=== PATIENT | female | born 1960 | race American Indian/Alaskan Native ===

== ENCOUNTER 2016-12-12 06:29 | Emergency (ER) | payer BC, OTHER ==
[2016-12-12 07:28] LABS: Basophils % (Auto) 0.6 % (0.0-1.8); Eosinophils % (Auto) 1.7 % (0.0-4.3); Hemoglobin 12.7 gm/dl (10.1-14.3); Mean Corpuscular HGB Conc 33 % (30-34); Mean Corpuscular Hemoglobin 29 pg (28-32); Mean Corpuscular Volume 85 fl (79-97); Red Blood Count 4.45 M/mm3 (3.65-5.03); White Blood Count 8.9 K/mm3 (4.5-11.0)
[2016-12-12 07:43] LABS: Platelet Count 159 K/mm3 (140-440)
--- NOTE | 2016-12-12 07:52 | Emergency Department Report ---
ED Abdominal Pain HPI - General Chief Complaint: Abdominal Pain Stated Complaint: LT CHEST PAIN, UPPER ABD PAIN Time Seen by Provider: 12/12/16 06:57 Source: patient Mode of arrival: Ambulatory Limitations: No Limitations - History of Present Illness Initial Comments: 56-year-old female who presents to ED with abdominal mass and pain. Patient has a past that was diagnosed on her left upper sternal border/upper abdomen approximately 2 months ago. Her pain is continuing it worsens that time. She had an ultrasound as an outpatient but was not given the results. She denies fevers chills nausea vomiting. She is here with significant pain. -: Gradual Location: epigastric Radiation: none Migration to: no migration Severity: moderate Associated Symptoms: constipation. denies: nausea, vomiting, diarrhea, fever, chills - Related Data Allergies Allergy/AdvReac Type Severity Reaction Status Date / Time ampicillin sodium Allergy Anaphylaxis Verified 08/15/14 21:57 [From Unasyn] sulbactam sodium Allergy Anaphylaxis Verified 08/15/14 21:57 [From Unasyn] ED Review of Systems ROS: Stated complaint: LT CHEST PAIN, UPPER ABD PAIN Other details as noted in HPI Comment: All other systems reviewed and negative Constitutional: denies: chills, fever Respiratory: denies: cough, shortness of breath, wheezing Cardiovascular: denies: chest pain, palpitations Endocrine: no symptoms reported Gastrointestinal: abdominal pain. denies: nausea, diarrhea Genitourinary: denies: urgency, dysuria, discharge Musculoskeletal: denies: back pain, joint swelling, arthralgia Skin: denies: rash, lesions Neurological: denies: headache, weakness, paresthesias Psychiatric: denies: anxiety, depression Hematological/Lymphatic: denies: easy bleeding, easy bruising ED Past Medical Hx - Past Medical History Previous Medical History?: Yes Hx Hypertension: Yes Hx Asthma: Yes Additional medical history: high cholesterol - Surgical History Past Surgical History?: Yes Additional Surgical History: colon resection. back OR x 3. hyst. L lumpectomy CA. c/s x 1 - Social History Smoking Status: Light Tobacco Smoker Substance Use Type: None ED Physical Exam - General Limitations: No Limitations General appearance: alert, in no apparent distress - Head Head exam: Present: atraumatic, normocephalic - Eye Eye exam: Present: normal appearance. Absent: scleral icterus, conjunctival injection - ENT ENT exam: Present: mucous membranes moist - Neck Neck exam: Present: normal inspection - Respiratory Respiratory exam: Present: normal lung sounds bilaterally. Absent: respiratory distress, wheezes, rales - Cardiovascular Cardiovascular Exam: Present: regular rate, normal rhythm, normal heart sounds. Absent: systolic murmur, diastolic murmur, rubs, gallop - GI/Abdominal GI/Abdominal exam: Present: soft, tenderness, normal bowel sounds, mass ( palpable mass in the epigastrium along the left costal margin) - Extremities Exam Extremities exam: Present: normal inspection - Back Exam Back exam: Present: normal inspection - Neurological Exam Neurological exam: Present: alert, oriented X3 - Psychiatric Psychiatric exam: Present: normal affect, normal mood - Skin Skin exam: Present: warm, dry, intact, normal color. Absent: rash ED Course Vital Signs 12/12/16 12/12/16 06:33 06:37 Temperature 98.7 F Respiratory 16 Rate Blood Pressure 144/99 ED Medical Decision Making - Lab Data Result diagrams: 12/12/16 06:53 12/12/16 08:34 Laboratory Results - last 24 hr 12/12/16 12/12/16 12/12/16 06:53 07:18 08:34 WBC 8.9 RBC 4.45 Hgb 12.7 Hct 38.0 MCV 85 MCH 29 MCHC 33 RDW 14.0 Plt Count 159 Lymph % (Auto) 32.6 [place] % (Auto) 6.6 Eos % (Auto) 1.7 Baso % (Auto) 0.6 Lymph # 2.9 [place] # 0.6 Eos # 0.1 Baso # 0.1 Seg Neutrophils % 58.5 Seg Neutrophils # 5.2 PT 13.5 INR 0.98 APTT 32.6 Sodium 143 Potassium 4.5 Chloride 103.6 Carbon Dioxide 26 Anion Gap 18 BUN 10 Creatinine 0.7 Estimated GFR > 60 BUN/Creatinine Ratio 14 Glucose 87 Calcium 9.6 Total Bilirubin 0.30 AST 18 ALT 15 Alkaline Phosphatase 96 Troponin T < 0.010 Total Protein 7.2 Albumin 4.2 Albumin/Globulin Ratio 1.4 Lipase 34 - Medical Decision Making 56-year-old female here with palpable abdominal mass with worsening pain. Plan a CT chest abdomen pelvis check labs and will reassess patient. Labs unremarkable, CT scan unremarkable, plan to discharge home. Portions of this chart were dictated with dictation software. There may be dictation errors contained within this note. Critical care attestation.: If time is entered above; I have spent that time in minutes in the direct care of this critically ill patient, excluding procedure time. ED Disposition Clinical Impression: Abdominal pain Disposition: DC-01 TO HOME OR SELFCARE Is pt being admited?: No Condition: Stable Instructions: Abdominal Pain (ED) Referrals: PRANAY MOSES MD [Primary Care Provider] - 3-5 Days
[2016-12-12 08:09] LABS: INR 0.98 (0.87-1.13)
[2016-12-12 08:10] LABS: Partial Thromboplastin Time 32.6 Sec. (24.2-36.6)
[2016-12-12 08:59] LABS: Alanine Aminotransferase 15 units/L (7-56); Albumin 4.2 g/dL (3.9-5); Albumin/Globulin Ratio 1.4 %; Alkaline Phosphatase 96 units/L (35-129); Anion Gap 18 mmol/L; BUN/Creatinine Ratio 14; Blood Urea Nitrogen 10 mg/dL (7-17); Calcium 9.6 mg/dL (8.4-10.2); Carbon Dioxide 26 mmol/L (22-30); Chloride 103.6 mmol/L (98-107); Glucose 87 mg/dL (65-100); Lipase 34 units/L (13-60); Potassium 4.5 mmol/L (3.6-5.0); Sodium 143 mmol/L (137-145); Total Protein 7.2 g/dL (6.3-8.2)
[2016-12-12] MEDS ORDERED: NACL ONE (09:21)
--- NOTE | 2016-12-12 10:11 | Cat Scan Report ---
CT scan of abdomen and pelvis with IV contrast: History: Abdominal pain, palpable mass. Findings: Small hiatal hernia. 2 subcentimeter hypodensities right lobe of liver probably cysts. Normal gallbladder pancreas and spleen. Normal adrenals. Normal kidneys and bladder. No free intraperitoneal fluid. No concerning adenopathy. Normal aorta. Gaseous colon is largely stool in colon. No bowel distention or obstruction. No evidence of appendicitis or diverticulitis. Impression: Hypodensities liver probably cysts. Gaseous colon is largely stool in colon. Small hiatal hernia.
--- NOTE | 2016-12-12 10:13 | Cat Scan Report ---
CT scan of chest with IV contrast: History: Abdominal pain, palpable mass upper abdomen. Findings: No endobronchial or mediastinal mass. No mediastinal, hilar or axillary adenopathy. No pleural pericardial effusion. Normal lung parenchyma. No discrete nodularity consolidation or mass. Impression: Essentially negative CT scan of chest.
[2016-12-12] MEDS ORDERED: NACL 0.9% 1000 ML 1,000 ML IV ONE (10:16)
[2016-12-12 11:33] VITALS: BP 136/78
== END 2016-12-12 11:32 | disposition home or self-care (01) ==
LOC: ED 06:29
DX: R10.9 Unspecified abdominal pain (principal); I10 Essential (primary) hypertension; J45.909 Unspecified asthma, uncomplicated; F17.200 Nicotine dependence, unspecified, uncomplicated
CPT/HCPCS: 36415; 71260; 74177; 80053; 83690; 84484; 85025; 85610; 85730; 93005; 93010; 96360; 99284; J7030; Q9967

== ENCOUNTER 2016-12-27 05:28 | Emergency (ER) | payer BC ==
[2016-12-27] MEDS ORDERED: TORADOL ONE (05:54)
[2016-12-27] MEDS ORDERED: TORADOL IV ONE (06:09)
[2016-12-27] MEDS ORDERED: ZOFRAN IV ONE ×2 (06:24→10:06)
[2016-12-27] MEDS ORDERED: DILAUDID IV ONE ×2 (06:24→10:06)
[2016-12-27 06:36] LABS: Basophils % (Auto) 0.3 % (0.0-1.8); Eosinophils % (Auto) 1.6 % (0.0-4.3); Hematocrit 35.9 % (30.3-42.9); Hemoglobin 11.8 gm/dl (10.1-14.3); Mean Corpuscular HGB Conc 33 % (30-34); Mean Corpuscular Hemoglobin 28 pg (28-32); Mean Corpuscular Volume 86 fl (79-97); Platelet Count 175 K/mm3 (140-440); Red Blood Count 4.19 M/mm3 (3.65-5.03); White Blood Count 5.1 K/mm3 (4.5-11.0)
[2016-12-27 06:43] LABS: Alanine Aminotransferase 14 units/L (7-56); Albumin 3.7 g/dL (3.9-5); Albumin/Globulin Ratio 1.2 %; Alkaline Phosphatase 81 units/L (35-129); Anion Gap 17 mmol/L; BUN/Creatinine Ratio 23; Bilirubin,Total < 0.20 mg/dL (0.1-1.2); Blood Urea Nitrogen 14 mg/dL (7-17); Calcium 8.8 mg/dL (8.4-10.2); Carbon Dioxide 20 mmol/L (22-30); Chloride 108.6 mmol/L (98-107); Glucose 94 mg/dL (65-100); Lipase 37 units/L (13-60); Sodium 142 mmol/L (137-145); Total Protein 6.8 g/dL (6.3-8.2)
--- NOTE | 2016-12-27 06:55 | Emergency Department Report ---
ED Back Pain/Injury HPI - General Chief Complaint: Abdominal Pain Stated Complaint: LT BACK PAIN Time Seen by Provider: 12/27/16 06:18 Source: patient, old records reviewed Limitations: No Limitations - History of Present Illness Initial Comments: 56-year-old female with a past asthma, hypertension, elevated cholesterol, colon resection, previous C-sections/ hysterectomy, and back surgeries 3 presents to the hospital with complaints of left lower back pain since early evening. Yesterday patient returned from a 1 day trip to and from [place]. Patient thinks she is having intermittent muscle spasms as well. No complaints of nausea, vomiting, hematuria, dysuria, urinary incontinence, leg weakness or numbness. Patient took Naprosyn without relief. Pain is currently 15 intensity, worse with palpation and movement, no alleviating factors. Patient was seen and evaluated here earlier this month for abdominal pain. On 12/12/2016 patient had unremarkable labs and UA and had a CT abdomen and pelvis with IV contrast showing a small hiatal hernia, liver cysts, gaseous colon with a large amount of stool. Patient also had a CT chest with IV contrast that was negative. - Related Data Previous Rx's Medication Instructions Recorded Last Taken Type Diazepam Tab [Valium] 2 mg PO TID PRN #14 tablet 12/27/16 Unknown Rx HYDROcodone/APAP 5-325 [[place] 1 each PO Q4HR PRN #20 tablet 12/27/16 Unknown Rx 5/325] Allergies Allergy/AdvReac Type Severity Reaction Status Date / Time ampicillin sodium Allergy Anaphylaxis Verified 08/15/14 21:57 [From Unasyn] sulbactam sodium Allergy Anaphylaxis Verified 08/15/14 21:57 [From Unasyn] ED Review of Systems ROS: Stated complaint: LT BACK PAIN Other details as noted in HPI Comment: All other systems reviewed and negative Other: Constitutional: No fevers chills Eyes: No eye pain visual changes ENT: No ear pain or throat pain Neck: Denies pain Respiratory: Denies cough wheezing shortness of breath Cardiovascular: Denies chest pain, palpitations, syncope GI: Denies abdominal pain, nausea, vomiting, diarrhea : Denies dysuria, urinary frequency, or urgency Musculoskeletal: as per hpi Skin: Denies rash, lesions, erythema Neurologic: Denies headache, numbness, weakness Psychiatric: Denies suicidal ideation, hallucinations ED Past Medical Hx - Past Medical History Hx Hypertension: Yes Hx Asthma: Yes Additional medical history: high cholesterol - Surgical History Additional Surgical History: colon resection. back OR x 3. hyst. L lumpectomy CA. c/s x 1 - Social History Smoking Status: Never Smoker Substance Use Type: None - Medications Home Medications: Home Medications Medication Instructions Recorded Confirmed Last Taken Type Diazepam Tab [Valium] 2 mg PO TID PRN #14 tablet 12/27/16 Unknown Rx HYDROcodone/APAP 5-325 [[place] 1 each PO Q4HR PRN #20 tablet 12/27/16 Unknown Rx 5/325] ED Physical Exam - General Limitations: No Limitations - Other Other exam information: General: No limitations, mild distress secondary to pain Head exam: Atraumatic, normocephalic Eyes exam: Normal appearance ENT: Moist mucous membrane Neck exam: Normal inspection Respiratory exam: Clear to auscultation bilateral Cardiovascular: Normal rate and rhythm, normal heart sounds Abdomen: Soft, nondistended, and nontender, with normal bowel sounds, no rebound, or guarding Extremity: Full range of motion normal inspection no deformity Back: Normal Inspection, full range of motion, tenderness to left lower back muscles. No midline tenderness. Midline back tenderness Neurologic: Alert, oriented x3, cranial nerves intact, no motor or sensory deficit Psychiatric: normal affect, normal mood Skin: Warm, dry, intact ED Course Vital Signs 12/27/16 12/27/16 12/27/16 05:46 08:10 08:11 Temperature 98.4 F Pulse Rate 89 72 Respiratory 20 16 16 Rate Blood Pressure 147/84 Blood Pressure 147/84 125/73 [Left] O2 Sat by Pulse 100 100 100 Oximetry - Reevaluation(s) Reevaluation #1: 12/27/16 12:29 After multiple rounds of medication including Dilaudid, Toradol, zofran, valium , and [place] patient has improvement in pain and is able to ambulate. ED Medical Decision Making - Lab Data Result diagrams: 12/27/16 06:06 12/27/16 06:06 Lab Results 12/27/16 12/27/16 12/27/16 Range/Units 06:04 06:06 06:06 WBC 5.1 (4.5-11.0) K/mm3 RBC 4.19 (3.65-5.03) M/mm3 Hgb 11.8 (10.1-14.3) gm/dl Hct 35.9 (30.3-42.9) % MCV 86 (79-97) fl MCH 28 (28-32) pg MCHC 33 (30-34) % RDW 14.0 (13.2-15.2) % Plt Count 175 (140-440) K/mm3 Lymph % (Auto) 47.4 H (13.4-35.0) % [place] % (Auto) 6.8 (0.0-7.3) % Eos % (Auto) 1.6 (0.0-4.3) % Baso % (Auto) 0.3 (0.0-1.8) % Lymph # 2.4 (1.2-5.4) K/mm3 [place] # 0.3 (0.0-0.8) K/mm3 Eos # 0.1 (0.0-0.4) K/mm3 Baso # 0.0 (0.0-0.1) K/mm3 Seg Neutrophils % 43.9 (40.0-70.0) % Seg Neutrophils # 2.3 (1.8-7.7) K/mm3 Sodium 142 (137-145) mmol/L Potassium 4.0 (3.6-5.0) mmol/L Chloride 108.6 H (98-107) mmol/L Carbon Dioxide 20 L (22-30) mmol/L Anion Gap 17 mmol/L BUN 14 (7-17) mg/dL Creatinine 0.6 L (0.7-1.2) mg/dL Estimated GFR > 60 ml/min BUN/Creatinine Ratio 23 % Glucose 94 (65-100) mg/dL Calcium 8.8 (8.4-10.2) mg/dL Total Bilirubin < 0.20 (0.1-1.2) mg/dL AST 18 (5-40) units/L ALT 14 (7-56) units/L Alkaline Phosphatase 81 (35-129) units/L Total Protein 6.8 (6.3-8.2) g/dL Albumin 3.7 L (3.9-5) g/dL Albumin/Globulin Ratio 1.2 % Lipase 37 (13-60) units/L Urine Color Yellow (Yellow) Urine Turbidity Clear (Clear) Urine pH 5.0 (5.0-7.0) Ur Specific [place] 1.029 (1.003-1.030) Urine Protein 100 mg/dl (Negative) mg/dL Urine Glucose (UA) Neg (Negative) mg/dL Urine Ketones Neg (Negative) mg/dL Urine Blood Sm (Negative) Urine Nitrite Neg (Negative) Urine Bilirubin Neg (Negative) Urine Urobilinogen < 2.0 (<2.0) mg/dL Ur Leukocyte Esterase Neg (Negative) Urine WBC (Auto) 1.0 (0.0-6.0) /HPF Urine RBC (Auto) 6.0 (0.0-6.0) /HPF U Epithel Cells (Auto) 4.0 (0-13.0) /HPF Urine Bacteria (Auto) 1+ (Negative) /HPF Urine Mucus Few /HPF - Medical Decision Making Patient's signs and symptoms suggestive of acute muscle spasm and strain of her left lower back. Likely exacerbated by prolonged sitting during her recent car ride. Patient had a CT earlier this month that did not show any stones. Patient denies nausea, vomiting or other signs of acute renal colic she denies distal neurologic symptoms. Therefore, imaging was not performed at this time. This was discussed with patient. She'll be treated symptomatically for pain and instructed to return if symptoms worsen. - Differential Diagnosis renal colic, UTI, muscle strain, herniated Disc Critical Care Time: No Critical care attestation.: If time is entered above; I have spent that time in minutes in the direct care of this critically ill patient, excluding procedure time. ED Disposition Clinical Impression: Back spasm, Back strain Disposition: - TO HOME OR SELFCARE Is pt being admited?: No Does the pt Need Aspirin: No Condition: Stable Instructions: Low Back Strain (ED) Additional Instructions: Take the medication as prescribed. Continue other medications as prescribed. Return if symptoms worsen. Prescriptions: Diazepam Tab [Valium] 2 mg PO TID PRN #14 tablet PRN Reason: Anxiety HYDROcodone/APAP 5-325 [[place] 5/325] 1 each PO Q4HR PRN #20 tablet PRN Reason: Pain Referrals: PRIMARY CARE, [Primary Care Provider] - 3-5 Days Time of Disposition: 12:33
[2016-12-27 08:02] LABS: Bacteria,Urine 1+ /HPF (Negative); Bilirubin,Urine NEG (Negative); Blood,Urine SM (Negative); Ketones,Urine NEG (Negative); Leukocyte Esterase,Urine NEG (Negative); Mucus,Urine FEW /HPF; Nitrite,Urine NEG (Negative); Urobilinogen,Urine < 2.0 mg/dL (<2.0)
[2016-12-27] MEDS ORDERED: VALIUM IV ONE (08:20)
[2016-12-27] MEDS ORDERED: VALIUM PO ONE (09:09)
[2016-12-27] MEDS ORDERED: VALIUM ONE (09:11)
[2016-12-27] MEDS ORDERED: NORCO 5/325 PO ONE (12:21)
[2016-12-27 12:36] VITALS: BP 136/95
== END 2016-12-27 13:01 | disposition home or self-care (01) ==
LOC: ED 05:28
DX: S39.012A Strain of muscle, fascia and tendon of lower back, initial encounter (principal); J45.909 Unspecified asthma, uncomplicated; I10 Essential (primary) hypertension; E78.00 Pure hypercholesterolemia, unspecified; Z88.8 Allergy status to other drugs, medicaments and biological substances; X58.XXXA Exposure to other specified factors, initial encounter; Y93.89 Activity, other specified; Y92.89 Other specified places as the place of occurrence of the external cause; Y99.8 Other external cause status
CPT/HCPCS: 36415; 80053; 81001; 83690; 85025; 96374; 96375; 96376; 99283; J1170; J1885; J2405